=== PATIENT | male | born 1955 | race Caucasian/White ===

== ENCOUNTER 2018-01-16 17:17 | Inpatient (IN) ==
[2018-01-16] MEDS ORDERED: Naloxone 0.4 MG/ML INJ IVP PRN (20:52)
--- NOTE | 2018-01-16 21:01 | Internal Med History&Physical ---
Date of Encounter: 01/17/18 Time of Encounter: 20:40 Internal Medicine - H&P: HPI Chief complaint: Hematuria, blood loss anemia Admitted From: Hospital to Hospital Transfer Plans for Post Hospital Care: Home History of present illness: Mr. Mahmood is a 62 year old male Patient presents from [facility] with initial complaints of large clots in his urine. He states that he has a history of bladder cancer and was to see his oncologist tomorrow to initiate radiation. He first started noticing blood in his urine about a year ago. Initially it was thought it was from a UTI, and he was initially treated with antibiotics. Eventually it was discovered through outpatient imaging that he had bladder cancer. He has a history of tongue, bladder and pharynx cancer as well. He is a one pack per day smoker. He drinks 4-6 beers daily. He is also been noticing some swelling in the lower extremities, but denies history of heart failure. Currently patient does not have shortness of breath either. At the [facility] ER patient's initial blood work showed a hemoglobin of 6.0 and hematocrit of 19.4. His AST was 111, ALT 40 and alkaline phosphatase was 149. His albumin was 2.4 and his BNP was 317.2. His troponin was 0.08, and he denies chest pain. EKG showed sinus tachycardia with a QTC of 502. Urinalysis showed large blood but negative for nitrites with only trace leukocyte esterase. He was typed and screened, and given 1 unit of blood prior to his arrival. Due to the nature of his hematuria and bladder cancer urology was consultative and will see the patient at [facility] in the morning. He was transferred to [facility] for further management. Upon my assessment patient is resting comfortably in bed. He denies chest pain , nausea, vomiting, diarrhea, constipation, shortness of breath, abdominal pain and dizziness. He first started noticing the swelling in his legs a few days ago. He never had anything like that before. Past Med Surg Social Fam HX - Past Medical History Medical history: cancer, hyperlipidemia, other Additional medical history: hep c. Calcification of arteries. Cancer of neck, tongue, bladder Psychiatric history: no psych history - Past Surgical History Surgical History: other Additional surgical history: Rt carpal tunnel surgery. right elbow ulnar nerve decompression 2016. Anterior cervical decompression and fusion C4-C5 2016. tongue 2018 - Social History Smoking Status: Current every day smoker Smokeless Tobacco Status: No Alcohol use: heavy Drug use: marijuana - Family History Brother Living Status: Age at : 53 Cause of : Cancer Hx Family Cancer: Yes Internal Medicine - H&P: Meds Gabapentin [Neurontin] 600 mg PO BID 01/17/17 [History] Sertraline [Zoloft] 50 mg PO DAILY #30 tablet 01/17/17 [Rx] Ergocalciferol (VITAMIN D2) [Vitamin D2] 50,000 unit PO QWEEK 08/29/17 [History] Iron 1 tab PO DAILY 08/29/17 [History] Megestrol Acetate [Megace] 2 tab PO DAILY 08/29/17 [History] 3 Allergy/AdvReac Type Severity Reaction Status Date / Time cetuximab [From Erbitux] Allergy Anaphylaxis Verified 07/26/17 15:26 All Systems PM: A 10-system review of systems was performed and is negative for pertinent findings except as documented above in the HPI. - Constitutional Vitals: Temp Pulse Resp BP Pulse Ox 97.9 F 116 14 102/63 100 01/16/18 19:32 01/16/18 19:32 01/16/18 19:32 01/16/18 19:32 01/16/18 19:32 General appearance: Present: cooperative, A&O X 3, pleasant, no acute distress, answers questions appropriately Exam: As above - Head Head exam: Present: normal inspection - Eye Eye exam: Present: EOMI, normal appearance - Neck Neck exam general surgery: Present: full ROM - Respiratory Respiratory exam: Present: CTAB. Absent: decreased breath sounds, rales, respiratory distress, rhonchi, wheezes - Cardiovascular Cardiovascular exam: Present: RRR. Absent: diastolic murmur, systolic murmur - GI/Abdominal GI/Abdominal exam: Present: normal bowel sounds, soft. Absent: tenderness - Extremities Exam Extremities exam: Present: pedal edema, warm, radial pulses palpable and symmetrical. Absent: calf tenderness Additional comments: 2-3+ pitting edema bilaterally lower extremities - Neurological Exam Neurological exam: Present: no focal deficits, strengths equal and symetr throughout. Absent: motor sensory deficit, facial droop, speech deficit Additional comments: Slight tremor bilaterally upper extremities with arm extension - Skin Skin exam: Present: dry, pallor, warm Internal Med - H&P Results - Labs CBC & Chem 7: 01/16/18 22:27 - Assessment and plan (1) Hematuria Current Visit: Yes Status: Acute Assessment and plan: Secondary to bladder cancer, patient has history of bladder tumor removal about 6 months ago. Type and screen Repeat CBC now Giving blood as needed Urology consult in the morning Qualifiers: Qualified Code(s): R31.9 - Hematuria, unspecified (2) Acute blood loss anemia Current Visit: Yes Status: Acute Assessment and plan: Patient appears pale on exam, initial blood work showed hemoglobin of 6.0, likely secondary to hematuria from bladder cancer. He was typed and screened at [facility] and given 1 unit of blood. Repeat CBC now Type & Screen now Potentially give more units of blood if indicated (3) Bladder cancer Current Visit: Yes Status: Acute Assessment and plan: Was to meet with his oncologist tomorrow in regards to starting radiation. Has history of bladder tumors in the past, with recent removal about 6 months ago. Continue to monitor Qualifiers: Qualified Code(s): C67.9 - Malignant neoplasm of bladder, unspecified (4) Lower extremity edema Current Visit: Yes Status: Acute Assessment and plan: Significant swelling of the lower extremities on exam. Patient denies history of congestive heart failure. Echocardiogram in October showed ejection fraction of 60%, diastolic dysfunction. Starting Lasix 20 mg IV once hemodynamically stable. (5) Elevated troponin Current Visit: Yes Status: Acute Assessment and plan: Elevated at [facility] at 0.08, likely secondary to anemia. Patient denies chest pain Continue to monitor and trend troponins (6) Elevated liver enzymes Current Visit: Yes Status: Acute Assessment and plan: Likely secondary to alcohol use. Patient denies history of cirrhosis, but does have evidence of fatty liver on imaging. Continue to monitor Repeat labs in the morning (7) Alcohol use disorder Current Visit: No Status: Chronic Assessment and plan: 4-6 beers daily for several years. Slight tremor on exam. Denies history of alcohol withdrawal. CIWA protocol (8) Tobacco use disorder Current Visit: No Status: Chronic Assessment and plan: Pack per day smoker daily Declines nicotine patch (9) Head and neck cancer Current Visit: No Status: Acute Assessment and plan: History of head and neck cancer a few years ago. Likely secondary to tobacco use. (10) Prolonged QT interval Current Visit: Yes Status: Acute Assessment and plan: QTC on EKG from [facility] shows a interval of 502. Caution use of QT prolonging medications Continue to monitor (11) DVT prophylaxis Current Visit: Yes Status: Acute Assessment and plan: SCDs - Time Spent With Patient Total time spent is greater than 50% in coordination of care (as documented) at patient's floor/unit and/or counseling patient: Greater than 35 minutes
[2018-01-16] MEDS ORDERED: *HR* LORazepam 2 MG/ML VIAL IVP PRN ×3 (21:35)
[2018-01-16 22:54] LABS: Basophils % 0.3 %; Eosinophils % 0.5 %; Hematocrit 19.4 % (37.5-50.1); Hemoglobin 6.2 g/dL (12.9-16.9); Immature Granulocytes % 0.4 % (0-4); Lymphocytes # 0.5 K/mcL (0.6-4.6); Lymphocytes % 6.1 %; Mean Corpuscular Hemoglobin 32.1 pg (28.0-33.3); Mean Corpuscular Volume 100.5 fL (83.0-100.0); Monocytes % 13.8 %; Neutrophils # 5.8 K/mcL (1.6-8.9); Platelet Count 243 K/mcL (140-400); Red Blood Count 1.93 M/mcL (4.19-5.50); Red Cell Distribution Width 20.6 % (11.5-14.5); Segmented Neutrophils % 78.9 %
[2018-01-16] MEDS ORDERED: 0.9 % Sodium Chloride 250 ML ONE (23:52)
[2018-01-17] MEDS ORDERED: Thiamine (B-1) 100 MG TABLET PO SCH (09:00)
[2018-01-17] MEDS ORDERED: Furosemide 20 MG/2 ML VIAL IVP SCH (09:00)
[2018-01-17] MEDS ORDERED: Vitamin B Complex/Vit C/Vit E 1 EACH TABLET PO SCH (09:00)
[2018-01-17] MEDS ORDERED: Folic Acid 1 MG TABLET PO SCH (09:00)
--- NOTE | 2018-01-17 09:30 | Urology - Consult Note ---
<Theresa Taylor N - Last Filed: 01/17/18 09:27> Date of Encounter: 01/17/18 Time of Encounter: 09:27 - Assessment and Plan (1) Bladder cancer Current Visit: Yes Status: Acute Assessment and plan: Patient is a 62-year-old male who presents the history of bladder cancer. Given the patient's acute blood loss, it was decided to go ahead and proceed to the operating room. The patient has been counseled the risks and benefits of surgery, and consent has been signed. The patient is verbalizes understanding, and he is prepared to undergo a cystoscopy, clot evacuation, transurethral resection of bladder tumor with Dr. Mahmood on 01/17/2018. Patient will remain nothing by mouth after 11 AM. Qualifiers: Qualified Code(s): C67.9 - Malignant neoplasm of bladder, unspecified (2) Hematuria Current Visit: Yes Status: Acute Assessment and plan: Patient is a 62-year-old male who presents with gross hematuria secondary to bladder cancer. Hemoglobin is markedly low at 6.2. Vital signs are stable, reassuring and afebrile. Patient currently has an indwelling Vasquez catheter. Catheter care will be maintained while the patient is admitted with frequent irrigation. Patient is prepared to go to surgery later today with Dr. Mahomod. Qualifiers: Qualified Code(s): R31.9 - Hematuria, unspecified Urology CN:TIEN Consult date: 01/17/18 Reason for consult Urology: Gross Hematuria History of present illness: Patient is a 62-year-old male who presents with a history of aggressive bladder cancer. Patient recently underwent a TURBT procedure in July [address] John. His bladder tumor at that time was greater than 5 cm. The patient states he has noticed gross hematuria over the past year. Patient reports feeling weak and noticing multiple clots in his urine over the last several days. The patient has an appointment scheduled to see an oncologist to initiate radiation. Patient has a positive smoking history. Patient states family history is negative for any urinary tract cancers. Patient admits to dysuria and urinary hesitancy. Patient denies flank pain, fever, chills. Past Med Surg Social Fam HX - Past Medical History Medical history: cancer, hyperlipidemia, other Additional medical history: hep c. Calcification of arteries. Cancer of neck, tongue, bladder Psychiatric history: no psych history - Past Surgical History Surgical History: other Additional surgical history: Rt carpal tunnel surgery. right elbow ulnar nerve decompression 2016. Anterior cervical decompression and fusion C4-C5 2016. tongue 2018 - Social History Smoking Status: Current every day smoker Smokeless Tobacco Status: No Alcohol use: heavy Drug use: marijuana - Family History Brother Living Status: Age at : 53 Cause of : Cancer Hx Family Cancer: Yes Medications and Allergies Ergocalciferol (VITAMIN D2) [Vitamin D2] 50,000 unit PO QWEEK 08/29/17 [History] Ferrous Sulfate [Iron] 325 mg PO DAILY 08/29/17 [History] Multivitamin [One Daily Essential] 1 tab PO DAILY 01/17/18 [History] 3 Allergy/AdvReac Type Severity Reaction Status Date / Time cetuximab [From Erbitux] Allergy Anaphylaxis Verified 01/17/18 08:45 Review of Systems - Constitutional fatigue, weakness, no chills, no fever(s) - EENT Nose, mouth and throat: dizziness, no headache(s) - Cardiovascular no chest pain, no diaphoresis, no dyspnea - Respiratory no cough, no dyspnea - Gastrointestinal no abdominal pain, no nausea, no vomiting - Genitourinary difficulty urinating, hematuria, urinary hesitancy, no flank pain, no urinary frequency, no urinary incontinence, no urinary urgency - Integumentary swelling, no lesions, no rash - Neurological no confusion, no syncope - Psychiatric no anxiety, no confusion Exam Initial Vital Signs Temp Pulse Resp BP Pulse Ox 97.9 F 116 14 102/63 100 01/16/18 19:32 01/16/18 19:32 01/16/18 19:32 01/16/18 19:32 01/16/18 19:32 - General physical appearance Present: no distress, no pain - Eyes Present: PERRL, normal ocular movement - ENT Present: normal nares, no hearing loss, no congestion - Neck Present: no masses, trachea midline - Respiratory Present: normal respiratory effort - Cardiovascular Cardiovascular exam IM: RRR - Abdomen Abdomen: Present: soft, non tender - Genitourinary other (Indwelling Vasquez catheter draining bloody urine, ketchup consistency) - Integumentary Present: no rash, no abnormal pigmentation - Neurologic Present: normal coordination Urology Results - Labs 01/16/18 22:27 Abnormal lab results RBC 1.93 M/mcL (4.19-5.50) L 01/16/18 22:27 Hgb 6.2 g/dL (12.9-16.9) L 01/16/18 22:27 Hct 19.4 % (37.5-50.1) L 01/16/18 22:27 MCV 100.5 fL (83.0-100.0) H 01/16/18 22:27 RDW 20.6 % (11.5-14.5) H 01/16/18 22:27 Lymphocytes # 0.5 K/mcL (0.6-4.6) L 01/16/18 22:27 Troponin I 0.05 ng/mL (< 0.04) H* 01/16/18 22:27 All other labs normal. - Imaging Additional studies: PET Scan report reviewed. Consult Discharge Plan - Plan Referrals: Radha Arevalo, [employer]ATOR [Primary Care Provider] - <Gonsalo Mahmood - Last Filed: 01/17/18 11:06> Date of Encounter: 01/17/18 Exam Initial Vital Signs Temp Pulse Resp BP Pulse Ox 97.9 F 116 14 102/63 100 01/16/18 19:32 01/16/18 19:32 01/16/18 19:32 01/16/18 19:32 01/16/18 19:32 Urology Results - Labs 01/17/18 09:57 Abnormal lab results RBC 1.93 M/mcL (4.19-5.50) L 01/16/18 22:27 Hgb 8.8 g/dL (12.9-16.9) L D 01/17/18 09:57 Hct 27.3 % (37.5-50.1) L 01/17/18 09:57 MCV 100.5 fL (83.0-100.0) H 01/16/18 22:27 RDW 20.6 % (11.5-14.5) H 01/16/18 22:27 Lymphocytes # 0.5 K/mcL (0.6-4.6) L 01/16/18 22:27 Troponin I 0.05 ng/mL (< 0.04) H* 01/16/18 22:27 All other labs normal. - Attending Attestation Patient seen and examined with the PA. He is an 62-year-old man with advanced bladder cancer. He now has gross hematuria with hemorrhage and anemia. He is getting resuscitated with blood products. I recommend proceeding with a cystoscopy, clot evacuation, fulguration, and possible transurethral resection of bladder tumor. He was informed of the risks of the surgery which include but are not limited to bleeding, infection, injury to structures, need for further procedures, need for open repair, and the risk of anesthesia. He is willing to proceed.
[2018-01-17 10:48] LABS: Hematocrit 27.3 % (37.5-50.1)
[2018-01-17 11:04] LABS: Hemoglobin 8.8 g/dL (12.9-16.9)
--- NOTE | 2018-01-17 12:12 | Internal Med Progress Note ---
Hospitalist Progress Note - Encounter Date of Encounter: 01/17/18 Time of Encounter: 10:35 - Subjective Interval History: H&P reviewd. Patient with history of bladder cancer presented with gross hematuria and anemia. Received 3 units of PRBC overnight and hemoglobin increased from 6 to 8.8. Schedule for all are this afternoon. Also complains of few month history of bilateral leg swellings. No chest pain, short of breath , palpitation, orthopnea, or PND. - Exam Vitals: Temp Pulse Resp BP Pulse Ox 98.3 F 102 17 110/70 99 01/17/18 10:00 01/17/18 10:00 01/17/18 10:00 01/17/18 10:00 01/17/18 10:00 Exam: General: Alert and oriented, not in acute distress. Cardiovascular:Normal S1 & S2, No JVD. Pulse regular. Borderline tachycardia Lungs: clear to auscultation, no wheezes/rales Abdomen:Soft, non-tender, no rigidity. Extremities: 3+ pitting edema upto knees bilaterally Neurological:Normal cognition and motor skills. Non-focal - Assessment and Plan (1) Hematuria Current Visit: Yes Status: Acute Assessment and Plan: Presented with clots in urine in the setting of bladder cancer Hb 6 on presentation -> 8.8 after 3U pRBC Urology consulted, noted the plan for OR later this afternoon monitor H&H and vitals (2) Lower extremity edema Current Visit: Yes Status: Acute Assessment and Plan: no history of CHF but did present with elevated troponin 0.08 - 0.05 without EKG findings concerning for ischemia could be due to hypoalbuminemia but will rule out DVT given his history of malignancy 1 dose of lasix today and reassess Echo as below (3) Elevated troponin Current Visit: Yes Status: Acute Assessment and Plan: 0.08 -> 0.05, in the absence of anginal symptoms or EKG findings concerning for ischemia Likely type II event secondary to anemia history of radiation for head and neck cancer recent eccho 10/2017 unremarkable Will obtain limited echocardiogram outpatient ischemic workup (4) Bladder cancer Current Visit: Yes Status: Chronic Assessment and Plan: Management for gross hematuria as above Follow with oncology outpatient (5) Alcohol use disorder Current Visit: No Status: Chronic Assessment and Plan: CIWA protocol today, d/c tomorrow if asymptomatic from withdrawal (6) Tobacco use disorder Current Visit: No Status: Chronic Assessment and Plan: counselling given NRT (7) DVT prophylaxis Current Visit: Yes Status: Acute Assessment and Plan: SCD - Time Spent with Patient Total time spent is greater than 50% in coordination of care (as documented) at patient's floor/unit and/or counseling patient: Plan of Care Discussed with: patient Internal Medicine: Result - Labs CBC & Chem 7: 01/17/18 09:57 Labs: Short CBC 01/16/18 01/17/18 Range/Units 22:27 09:57 WBC 7.4 (4.3-11.1) K/mcL Hgb 6.2 L 8.8 L D (12.9-16.9) g/dL Hct 19.4 L 27.3 L (37.5-50.1) % Plt Count 243 (140-400) K/mcL Neutrophils # 5.8 (1.6-8.9) K/mcL Cardiac Enzymes 01/16/18 Range/Units 22:27 Troponin I 0.05 H* (< 0.04) ng/mL Consult Discharge Plan - Plan Referrals: Radha Arevalo, POT [employer]DER [Primary Care Provider] - (1) Hematuria Qualifiers: Hematuria type: gross Qualified Code(s): R31.0 - Gross hematuria (4) Bladder cancer Qualifiers: Bladder location: unspecified site Qualified Code(s): C67.9 - Malignant neoplasm of bladder, unspecified
--- NOTE | 2018-01-17 15:43 | Anesthesia Evaluation PreOp ---
Date of Encounter: 01/17/18 Time of Encounter: 16:04 - Past History Planned Operation: CYSTOSCOPY, EVAC HEMATOMA, FULGRATION Pulmonary History: Smoker, Other (TONGUE & PHARYNGEAL CA, POST GLOSSECTOMY, XRT) Other Medical History: Hepatic (HEP C, ELEVATED LFT), Renal (CA BLADDER, BLADDR CLOTS), Bleeding (ANEMIA, HB 8.8 POST 2 UNITS PRBC) Anesthesia History: Past Anesthesia (ACDF 2016,) Alcohol Use: heavy Drug use: marijuana Medications and Allergies Ergocalciferol (VITAMIN D2) [Vitamin D2] 50,000 unit PO QWEEK 08/29/17 [History] Ferrous Sulfate [Iron] 325 mg PO DAILY 08/29/17 [History] Multivitamin [One Daily Essential] 1 tab PO DAILY 01/17/18 [History] 3 Allergy/AdvReac Type Severity Reaction Status Date / Time cetuximab [From Erbitux] Allergy Anaphylaxis Verified 01/17/18 08:45 - Meds/Allergy Pre-op Review Medications Reviewed: Yes Allergies Reviewed: Yes Beta Blockers on Current Med List: No Anesthesia Results - Labs 01/17/18 09:57 Laboratory Last Values WBC 7.4 K/mcL (4.3-11.1) 01/16/18 22:27 RBC 1.93 M/mcL (4.19-5.50) L 01/16/18 22:27 Hgb 8.8 g/dL (12.9-16.9) L D 01/17/18 09:57 Hct 27.3 % (37.5-50.1) L 01/17/18 09:57 MCV 100.5 fL (83.0-100.0) H 01/16/18 22:27 MCH 32.1 pg (28.0-33.3) 01/16/18 22:27 MCHC 32.0 g/dL (31.6-35.5) 01/16/18 22:27 RDW 20.6 % (11.5-14.5) H 01/16/18 22:27 Plt Count 243 K/mcL (140-400) 01/16/18 22:27 MPV 10.0 fL (9.4-12.4) 01/16/18 22:27 Immature Gran % 0.4 % (0-4) 01/16/18 22:27 Seg Neutrophils % 78.9 % 01/16/18 22: Lymphocytes % 6.1 % 01/16/18 22: Monocytes % 13.8 % 01/16/18: Eosinophils % 0.5 % 01/16/18 22: Basophils % 0.3 % 01/16/18 22: Neutrophils # 5.8 K/mcL (1.6-8.9) 01/16/18: Lymphocytes # 0.5 K/mcL (0.6-4.6) L 01/16/18 22: Monocytes # 1.0 K/mcL (0.0-1.3) 01/16/18: Eosinophils # 0.0 K/mcL (0.0-0.6) 01/16/18: Basophils # 0.0 K/mcL (0.0-0.2) 01/16/18 22: POC Glucose 112 mg/dL (70-99) H 01/17/18 05:38 Troponin I 0.05 ng/mL (< 0.04) H* 01/16/18 22: Blood Type A POSITIVE 01/16/18 22: Antibody Screen NEGATIVE 01/16/18: Crossmatch See Detail 01/16/18: LABS FROM OSH ON 01/16: Cr 0.72 Ca 8.6 MG 2.0 BNP 317 - Imaging EKG: report reviewed (SR, PROLONGED QT) Anesthesia Exam Vital Signs/O2 Sat, Most Current Temp Pulse Resp BP Pulse Ox 98.3 F 102 17 110/70 99 01/17/18 10:00 01/17/18 10:00 01/17/18 10:00 01/17/18 10:00 01/17/18 10:00 Height: 1.75 m Weight: 74 kg.... BMI 24 NPO (# of Hours): >1030 AM - HEENT Mallampati: II Teeth: Missing, Poor dentition Oral Opening: Greater than 3 - Cardiac Rhythm: Regular - Pulmonary Breath Sounds: bilateral Clear Respiratory Effort: Symmetrical Anesthesia Assess/Plan ASA Score: 4 Modified Cholo Scale for Level of Consciousness: Cooperative, oriented, and tranquil Anesthetic Plan: General Monitoring Plan: Standard Monitors Recovery Plan: PACU Anes Supervising Prov Stmt: Patient informed and consented. Risks, benefits, and alternatives discussed. Patient wishes to proceed.
[2018-01-17] MEDS ORDERED: Levofloxacin 500 MG/100 ML 500 MG/100 ML BAG IVPB ONE (16:24)
[2018-01-17] MEDS ORDERED: *HR* FentaNYL (PF) 100 MCG/2 ML VIAL ONE ×2 (16:55→17:03)
[2018-01-17] MEDS ORDERED: Ondansetron 4 MG/2 ML VIAL ONE (17:03)
[2018-01-17] MEDS ORDERED: *HR* Propofol 200 MG/20 ML VIAL IVP ONE (17:03)
[2018-01-17] MEDS ORDERED: *HR* Midazolam HCl 2 MG/2 ML VIAL ONE (17:03)
[2018-01-17] MEDS ORDERED: Lidocaine -MPF 2% 2 ML VIAL ONE (17:03)
[2018-01-17] MEDS ORDERED: Dexamethasone 4 MG/ML VIAL ONE (17:03)
--- NOTE | 2018-01-17 17:16 | Operative Note ---
Date of procedure: 01/17/18 Pre-op diagnosis: Hematuria, bladder cancer Post-op diagnosis: same Procedure: Cystoscopy, clot evacuation, fulguration. Transurethral resection of bladder tumor, medium Implants: [address] Complications: none Anesthesia: KEERTHI Surgeon: Gonsalohany Mahmood Was there an acute care certified nursing assistant present: No Estimated blood loss (cc): 5 Specimen: bladder tumor Condition: stable Disposition: PACU Procedure in Detail: Indications: Mr. Mahmood is a 62-year-old gentleman who has a history of hematuria and bladder cancer. He elected to undergo a cystoscopy, clot evacuation, and transurethral resection of bladder tumor. He was informed of the risks of the procedure including but not limited to bleeding, infection, injury to other structures, need for further procedures, and the risk of anesthesia. He is willing to proceed. Procedure: After informed consent was obtained Mr. Mahmood was brought back to the operating room and placed in the supine position. A timeout was performed. General anesthesia was then administered and an LMA was placed. He was then placed in the lithotomy position. His genitalia were prepped and draped in the usual sterile fashion. The urethra was gently dilated with Kavitha sounds to 28-Japanese. Cystoscopy was then performed. The anterior urethra was unremarkable. Prostate showed trilobar hyperplasia. Upon entering the bladder there was a large clot located in the dependent portion. This was irrigated out. Once the clot was irrigated out and inserted the Oliveira element with the resecting loop. There was extensive bladder cancer from the bladder neck going into the trigone and moving laterally. I never identified the left ureteral orifice. The bladder cancer seen to extend over top of the area where the left ureteral orifice was anticipated to be. The right ureteral orifice was in the normal orthotopic position without any bladder cancer. The tumor was resected. I then inserted the button electrode. The base of the bladder tumor was fulgurated until hemostasis was excellent. The bladder cancer chips were irrigated out. I then placed a 24-Japanese 3-way catheter. The catheter irrigated clear. The patient was then awakened from general anesthesia and brought to the recovery room in good condition. All sponge, needle and instrument counts were correct.
[2018-01-17] MEDS ORDERED: Ondansetron 4 MG/2 ML VIAL IVP ONE (17:24)
[2018-01-17] MEDS ORDERED: Ringers Solution, Lactated 1,000 ML IVC SCH (17:30)
[2018-01-17] MEDS: *HR* HYDROmorphone (PF) 1 MG/ML SYRINGE IVP PRN ×2 (17:33→17:41)
--- NOTE | 2018-01-17 18:02 | Anesthesia Evaluation Post Op ---
Date of Encounter: 01/17/18 Time of Encounter: 18:02 - Discharge PostOp Status: Transfer Patient to floor (Patient's vital signs have been reviewed. Patient is stable postoperatively and has adequately recovered from anesthesia. Patient is determined to have stable airway patency and respiratory function including respiratory rate and oxygen saturation. Patient has a stable heart rate, blood pressure and adequate hydration. Patients mental status is acceptable. Patients temperature is appropriate. Pain and nausea are adequately controlled.)
[2018-01-17] MEDS ORDERED: *HR* LORazepam 2 MG/ML VIAL IVP PRN ×3 (18:07)
[2018-01-17] MEDS ORDERED: Naloxone 0.4 MG/ML INJ IVP PRN (18:07)
[2018-01-17] MEDS: *HR* OxyCODONE/APAP 5/325 TABLET PO PRN (19:30)
[2018-01-18 04:45] LABS: Basophils % 0.1 %; Hematocrit 28.5 % (37.5-50.1); Hemoglobin 9.4 g/dL (12.9-16.9); Immature Granulocytes % 0.5 % (0-4); Lymphocytes # 0.5 K/mcL (0.6-4.6); Lymphocytes % 6.6 %; Mean Corpuscular Hemoglobin 32.8 pg (28.0-33.3); Mean Corpuscular Volume 99.3 fL (83.0-100.0); Mean Platelet Volume 10.2 fL (9.4-12.4); Monocytes # 0.6 K/mcL (0.0-1.3); Monocytes % 7.2 %; Neutrophils # 6.7 K/mcL (1.6-8.9); Nucleated Red Blood Cells 0.3 /100 WBC (0); Platelet Count 231 K/mcL (140-400); Red Blood Count 2.87 M/mcL (4.19-5.50); Segmented Neutrophils % 85.6 %
[2018-01-18 05:05] LABS: Alanine Aminotransferase 21 Units/L (7-52); Albumin 2.3 g/dL (3.5-5.7); Albumin/Globulin Ratio 0.7 (1.1-2.2); Alkaline Phosphatase 99 Units/L (34-104); Aspartate Amino Transferase 51 Units/L (13-39); BUN/Creatinine Ratio 9 (6-26); Bilirubin,Total 0.9 mg/dL (0.3-1.0); Blood Urea Nitrogen 4 mg/dL (8-23); Carbon Dioxide 22 mEq/L (23-29); Chloride 107 mEq/L (98-107); Globulin 3.2 g/dL (2.4-3.5); Glucose 162 mg/dL (70-105); Osmolality,Calculated 280 (280-300); Potassium 3.1 mEq/L (3.5-5.1); Sodium 135 mEq/L (136-145); Total Protein 5.5 g/dL (6.4-8.9); eGFR For Non-African Americans > 60 (> 60)
[2018-01-18] MEDS: Vitamin B Complex/Vit C/Vit E 1 EACH TABLET PO SCH (09:00)
[2018-01-18] MEDS: Potassium Chloride Elixir 20 MEQ/15 ML UDC PO SCH ×2 (09:00→19:26)
[2018-01-18] MEDS: Thiamine (B-1) 100 MG TABLET PO SCH (09:00)
[2018-01-18] MEDS: Nicotine 21 MG PATCH.TD24 TD SCH (09:00)
[2018-01-18] MEDS: Folic Acid 1 MG TABLET PO SCH (09:00)
[2018-01-18] MEDS ORDERED: Nicotine 21 MG PATCH.TD24 TD SCH (09:00)
--- NOTE | 2018-01-18 09:31 | Urology Progress Note ---
Date of Encounter: 01/18/18 Time of Encounter: 09:29 - Assessment and Plan (1) Bladder cancer Current Visit: Yes Status: Chronic Assessment and plan: 62-year-old man status post TURBT, cystoscopy, clot evacuation, and fulguration. He is doing well today. Hemoglobin is improved to 9.4 today. Urine is clear. I will discontinue his CBI. We will keep the catheter in today to monitor his urine color. Anticipate catheter removal tomorrow if doing well. Qualifiers: Bladder location: unspecified site Qualified Code(s): C67.9 - Malignant neoplasm of bladder, unspecified Progress Note Narrative: 62-year-old man status post TURBT, postoperative day #1. His urine is clear today. He reports having some bladder spasms and leakage of urine around the catheter. Objective Initial Vital Signs Temp Pulse Resp BP Pulse Ox 97.9 F 116 14 102/63 100 01/16/18 19:32 01/16/18 19:32 01/16/18 19:32 01/16/18 19:32 01/16/18 19:32 - General physical appearance Present: well developed, well nourished, no distress - Respiratory Present: normal respiratory effort - Abdomen Present: soft - Genitourinary Urine Appearance: Present: Clear (Clear on slow CBI.) - Labs 01/18/18 04:22 01/18/18 04:22 Diabetes panel 01/18/18 Range/Units 04:22 Sodium 135 L (136-145) mEq/L Potassium 3.1 L (3.5-5.1) mEq/L Chloride 107 (98-107) mEq/L Carbon Dioxide 22 L (23-29) mEq/L BUN 4 L (8-23) mg/dL Creatinine 0.46 L (0.70-1.30) mg/dL Glucose 162 H (70-105) mg/dL Calcium 8.0 L (8.6-10.3) mg/dL AST 51 H (13-39) Units/L ALT 21 (7-52) Units/L Alkaline Phosphatase 99 (34-104) Units/L Albumin 2.3 L (3.5-5.7) g/dL Calcium panel 01/18/18 Range/Units 04:22 Calcium 8.0 L (8.6-10.3) mg/dL Albumin 2.3 L (3.5-5.7) g/dL Pituitary panel 01/18/18 Range/Units 04:22 Sodium 135 L (136-145) mEq/L Potassium 3.1 L (3.5-5.1) mEq/L Chloride 107 (98-107) mEq/L Carbon Dioxide 22 L (23-29) mEq/L BUN 4 L (8-23) mg/dL Creatinine 0.46 L (0.70-1.30) mg/dL Glucose 162 H (70-105) mg/dL Calcium 8.0 L (8.6-10.3) mg/dL Adrenal panel 01/18/18 Range/Units 04:22 Sodium 135 L (136-145) mEq/L Potassium 3.1 L (3.5-5.1) mEq/L Chloride 107 (98-107) mEq/L Carbon Dioxide 22 L (23-29) mEq/L BUN 4 L (8-23) mg/dL Creatinine 0.46 L (0.70-1.30) mg/dL Glucose 162 H (70-105) mg/dL Calcium 8.0 L (8.6-10.3) mg/dL Total Bilirubin 0.9 (0.3-1.0) mg/dL AST 51 H (13-39) Units/L ALT 21 (7-52) Units/L Alkaline Phosphatase 99 (34-104) Units/L Albumin 2.3 L (3.5-5.7) g/dL Consult Discharge Plan - Plan Referrals: Radha Arevalo CNP [Primary Care Provider] - Gonsalo Mahmood MD [Partnered Physician] -
--- NOTE | 2018-01-18 11:59 | Internal Med Progress Note ---
Hospitalist Progress Note - Encounter Date of Encounter: 01/18/18 Time of Encounter: 10:00 - Subjective Interval History: No new complaints, LE swelling is largely unchanged. He is s/p cystocopy, clot evacuation, fulguration, and resection of bladder tumor yesterday. Started on CBI post-op and his tubing/koo bag are draining clear urine. No chest pain, SOB, orthopnea. - Exam Vitals: Temp Pulse Resp BP Pulse Ox 98.6 F 95 16 100/62 94 01/18/18 11:50 01/18/18 11:50 01/18/18 11:50 01/18/18 11:50 01/18/18 11:50 Exam: General: Alert and oriented, not in acute distress. Cardiovascular:Normal S1 & S2, No JVD. Pulse regular. normal rate Lungs: clear to auscultation, no wheezes/rales Abdomen:Soft, non-tender, no rigidity. : both tubing and koo bag draining clear urine Extremities: 3+ pitting edema upto knees bilaterally Neurological:Normal cognition and motor skills. Non-focal - Assessment and Plan (1) Hematuria Current Visit: Yes Status: Acute Assessment and Plan: Presented with clots in urine in the setting of bladder cancer Hb 6 -> 8.8 after 3U pRBC, remains >9 today without further transfusion s/p TURBT, cystoscopy, clot evacuation, and fulguration POD#1 seems to be resolving on CBI discussed with Urology, will d/c CBI and monitor today -> potentially d/c tomorrow monitor H&H (2) Lower extremity edema Current Visit: Yes Status: Acute Assessment and Plan: likely to hypoalbuminemia, doppler -ve for DVT Echo did not show any depressed EF, wall motion abnormalities, or tonsillar dysfunction. unchanged after IV lasix, will d/c Continue dietary supplement (3) Elevated troponin Current Visit: Yes Status: Acute Assessment and Plan: 0.08 -> 0.05, in the absence of anginal symptoms or EKG findings concerning for ischemia Likely type II event secondary to anemia history of radiation for head and neck cancer recent eccho 10/2017 unremarkable -> limited echo yesterday is normal outpatient ischemic workup since he has never had it before check A1c and lipid panel tomorrow (4) Bladder cancer Current Visit: Yes Status: Chronic Assessment and Plan: Management for gross hematuria as above Follow with oncology outpatient (5) Alcohol use disorder Current Visit: No Status: Chronic Assessment and Plan: No signs or symptoms of withdrawal. Did not require any IV Ativan overnight Discontinue CIWA protocol (6) Tobacco use disorder Current Visit: No Status: Chronic Assessment and Plan: counselling reinforced NRT (7) DVT prophylaxis Current Visit: Yes Status: Acute Assessment and Plan: SCD - Time Spent with Patient Total time spent is greater than 50% in coordination of care (as documented) at patient's floor/unit and/or counseling patient: Plan of Care Discussed with: patient (also with Urology) Internal Medicine: Result - Labs CBC & Chem 7: 01/18/18 04:22 01/18/18 04:22 Labs: Short CBC 01/18/18 Range/Units 04:22 WBC 7.9 (4.3-11.1) K/mcL Hgb 9.4 L (12.9-16.9) g/dL Hct 28.5 L (37.5-50.1) % Plt Count 231 (140-400) K/mcL Neutrophils # 6.7 (1.6-8.9) K/mcL BMP 01/18/18 04:22 Sodium 135 L Potassium 3.1 L Chloride 107 Carbon Dioxide 22 L BUN 4 L Creatinine 0.46 L Glucose 162 H Calcium 8.0 L Liver Function 01/18/18 Range/Units 04:22 Total Bilirubin 0.9 (0.3-1.0) mg/dL AST 51 H (13-39) Units/L ALT 21 (7-52) Units/L Alkaline Phosphatase 99 (34-104) Units/L Albumin 2.3 L (3.5-5.7) g/dL - Impressions Impressions Echocardiogram Limited Views 01/17/18 12:17 Impressions: Limited study. LVEF 60-65%. Normal LV chamber size, wall thickness and systolic function. Normal right ventricular structure and function. Left Ventricular Wall Motion: Rest Echo Findings All wall segments showed normal motion. Findings: Comments * Limited study Study Quality * Technically adequate exam. ECG Findings * Normal sinus rhythm. Left Ventricle * LVEF 60-65%. * Normal LV chamber size, wall thickness and systolic function. Right Ventricle * Normal right ventricular structure and function. Left Atrium * Normal left atrial size. Right Atrium * Normal right atrial size. Consult Discharge Plan - Plan Referrals: Radha Arevalo CNP [Primary Care Provider] - Gonsalo Mahmood MD [Partnered Physician] - (1) Hematuria Qualifiers: Hematuria type: gross Qualified Code(s): R31.0 - Gross hematuria (4) Bladder cancer Qualifiers: Bladder location: unspecified site Qualified Code(s): C67.9 - Malignant neoplasm of bladder, unspecified
[2018-01-18] MEDS: *HR* OxyCODONE/APAP 5/325 TABLET PO PRN ×2 (14:25→19:26)
[2018-01-18] MEDS ORDERED: OXYCODONE Oral CONC 10 MG/0.5 ML ORAL.SYG SL STA (17:19)
[2018-01-19] MEDS: *HR* OxyCODONE/APAP 5/325 TABLET PO PRN ×3 (00:01→09:55)
[2018-01-19 03:00] VITALS: BP 111/68
[2018-01-19 05:05] LABS: Hematocrit 26.1 % (37.5-50.1); Hemoglobin 8.5 g/dL (12.9-16.9)
[2018-01-19 05:31] LABS: BUN/Creatinine Ratio 11 (6-26); Blood Urea Nitrogen 6 mg/dL (8-23); Calcium 8.6 mg/dL (8.6-10.3); Carbon Dioxide 22 mEq/L (23-29); Chloride 110 mEq/L (98-107); Chol/HDL Ratio 4.9 (0-4.9); Cholesterol 94 mg/dL (< 200); Glucose 100 mg/dL (70-105); HDL Cholesterol 19 mg/dL (40-59); LDL Cholesterol,Calculated 58 mg/dL (0-99); Magnesium 1.6 mg/dL (1.6-2.6); Osmolality,Calculated 282 (280-300); Potassium 3.8 mEq/L (3.5-5.1); Sodium 137 mEq/L (136-145); Triglycerides 83 mg/dL (< 150); eGFR For Non-African Americans > 60 (> 60)
[2018-01-19 07:17] LABS: Estimated Average Glucose 82 mg/dl; Hemoglobin A1C 4.5 %
[2018-01-19] MEDS: Folic Acid 1 MG TABLET PO SCH (08:02)
[2018-01-19] MEDS: Nicotine 21 MG PATCH.TD24 TD SCH (08:02)
[2018-01-19] MEDS: Vitamin B Complex/Vit C/Vit E 1 EACH TABLET PO SCH (08:02)
[2018-01-19] MEDS: Thiamine (B-1) 100 MG TABLET PO SCH (08:02)
--- NOTE | 2018-01-19 09:44 | Urology Progress Note ---
Date of Encounter: 01/19/18 Time of Encounter: 09:43 - Assessment and Plan (1) Bladder cancer Current Visit: Yes Status: Chronic Assessment and plan: Postoperatively #2 status post TURBT. H&H is stable. Catheter was removed today. We will monitor his voiding. If he is able to void, he can be discharged home. I placed an order for a bladder scan if he is not able to void. Qualifiers: Bladder location: unspecified site Qualified Code(s): C67.9 - Malignant neoplasm of bladder, unspecified Progress Note Narrative: 62-year-old man status post TURBT, postoperative day #2. His urine is clear today. Pyridium was started for dysuria. I removed his catheter. Objective Initial Vital Signs Temp Pulse Resp BP Pulse Ox 97.9 F 116 14 102/63 100 01/16/18 19:32 01/16/18 19:32 01/16/18 19:32 01/16/18 19:32 01/16/18 19:32 - General physical appearance Present: well developed, well nourished, no distress - Respiratory Present: normal respiratory effort - Abdomen Present: soft - Genitourinary Urine Appearance: Present: Clear - Labs 01/19/18 04:17 01/19/18 04:17 Diabetes panel 01/19/18 01/19/18 Range/Units 04:17 04:17 Sodium 137 (136-145) mEq/L Potassium 3.8 (3.5-5.1) mEq/L Chloride 110 H (98-107) mEq/L Carbon Dioxide 22 L (23-29) mEq/L BUN 6 L (8-23) mg/dL Creatinine 0.57 L (0.70-1.30) mg/dL Glucose 100 (70-105) mg/dL Hemoglobin A1c 4.5 ( - 5.6) % Calcium 8.6 (8.6-10.3) mg/dL Triglycerides 83 (< 150) mg/dL HDL Cholesterol 19 L (40-59) mg/dL Calcium panel 01/19/18 Range/Units 04:17 Calcium 8.6 (8.6-10.3) mg/dL Pituitary panel 01/19/18 Range/Units 04:17 Sodium 137 (136-145) mEq/L Potassium 3.8 (3.5-5.1) mEq/L Chloride 110 H (98-107) mEq/L Carbon Dioxide 22 L (23-29) mEq/L BUN 6 L (8-23) mg/dL Creatinine 0.57 L (0.70-1.30) mg/dL Glucose 100 (70-105) mg/dL Calcium 8.6 (8.6-10.3) mg/dL Adrenal panel 01/19/18 Range/Units 04:17 Sodium 137 (136-145) mEq/L Potassium 3.8 (3.5-5.1) mEq/L Chloride 110 H (98-107) mEq/L Carbon Dioxide 22 L (23-29) mEq/L BUN 6 L (8-23) mg/dL Creatinine 0.57 L (0.70-1.30) mg/dL Glucose 100 (70-105) mg/dL Calcium 8.6 (8.6-10.3) mg/dL Consult Discharge Plan - Plan Referrals: Radha Arevalo CNP [Primary Care Provider] - Gonsalo Mahmood MD [Partnered Physician] -
--- NOTE | 2018-01-19 10:00 | Discharge Summary ---
- NOTES TO OUTPATIENT PROVIDER Notes to Outpatient Provider: Patient was admitted for gross hematuria secondary to bladder cancer. Hb as low as 6, requiring 3U pRBC transfusion and Hb remained stable > 8. Also had mild troponin elevation of 0.04 -> 0.04 without anginal symptoms or EKG changes concerning for ischemia, likely due to demand ischemia from anemia. Underwent TURBT, clot evacuation and fulguration uneventfully on 01/17. He had koo removed prior to the discharge and was able to void well after. He will follow up with Urology and Oncology as an outpatient. He will benefit from outpatient ischemic workup for CAD as he also has history of radiation therapy for head+neck cancer in addition to history of HLD and smoking. Orders not resulted at time of discharge: Pending orders 01/17/18 16:53 Surgical Pathology [PTH] Routine Date of Encounter: 01/19/18 Time of Encounter: 08:00 - Discharge Diagnosis (1) Hematuria Priority: Primary Status: Acute Qualifiers: Hematuria type: gross Qualified Code(s): R31.0 - Gross hematuria (2) Lower extremity edema Priority: Secondary Status: Acute (3) Elevated troponin Priority: Secondary Status: Acute (4) Bladder cancer Priority: Secondary Status: Chronic Qualifiers: Bladder location: unspecified site Qualified Code(s): C67.9 - Malignant neoplasm of bladder, unspecified (5) Alcohol use disorder Priority: Secondary Status: Chronic (6) Tobacco use disorder Priority: Secondary Status: Chronic (7) DVT prophylaxis Priority: Secondary Status: Acute Hospital course: Mr. Mahmood is a 62 year old male Discharge discussed with: patient - Time Spent with Patient Total time spent providing and/or coordinating discharge services: Greater than 30 minutes - Discharge Medications Home Medications: Ergocalciferol (VITAMIN D2) [Vitamin D2] 50,000 unit PO QWEEK 08/29/17 [History] Ferrous Sulfate [Iron] 325 mg PO DAILY 08/29/17 [History] Multivitamin [One Daily Essential] 1 tab PO DAILY 01/17/18 [History] Allergies/Adverse Reactions: 3 Allergy/AdvReac Type Severity Reaction Status Date / Time cetuximab [From Erbitux] Allergy Anaphylaxis Verified 01/17/18 08:45 Date of admission: 01/17/18 13:36 Primary care physician: Radha Arevalo CNP Consults: 01/16/18 20:55 Consult to Urology [CONS] Routine Consulting Provider: Urology [facility] Reason for Consult: Hematuria, called from [facility] Call Completed: Yes 01/18/18 07:41 Consult to Occupational Therapy [CONS] Routine Comment: Evaluate, develop and implement POC Reason for Consult: evaluation for discharge planning Does patient have active BEDREST order?: No Is patient medically & hemodynamically stable?: Yes Consult to Physical Therapy [CONS] Routine Comment: Evaluate, develop and implement POC Reason for Consult: evaluation for discharge planning Does patient have active BEDREST order?: No Is patient medically & hemodynamically stable?: Yes - Constitutional Vitals: Temp Pulse Resp BP Pulse Ox 98.4 F 93 16 111/68 93 01/19/18 02:59 01/19/18 02:59 01/19/18 02:59 01/19/18 02:59 01/19/18 02:59 General appearance: Present: cooperative, A&O X 3, pleasant, no acute distress, answers questions appropriately Exam: General: Alert and oriented, not in acute distress. Cardiovascular:Normal S1 & S2, No JVD. Pulse regular. normal rate Lungs: clear to auscultation, no wheezes/rales Abdomen:Soft, non-tender, no rigidity. Extremities: 3+ pitting edema upto knees bilaterally Neurological:Normal cognition and motor skills. Non-focal - Patient Status Disposition: Home, Self-Care Condition: Good Functional capacity at discharge: independent ambulation Overall status at discharge: patient is progressing back to baseline - Discharge Instructions Instructions: Anemia (GEN) Follow Up With: Radha Arevalo CNP [Primary Care Provider] - Gonsalo Mahmood MD [Partnered Physician] - - Diet and Activity Activity: resume usual activities as tolerated Diet: advance to your usual diet
== END 2018-01-19 12:17 | disposition home or self-care (01) | DRG 446 ==
LOC: 3ANU → SUATTDRO 19:08
PROVIDERS: ADMIT Student in an Organized Health Care Education/Training Program; ATTEND Internal Medicine